=== PATIENT | female | born 1965 | race Hispanic/Latino ===

== ENCOUNTER 2017-07-01 21:01 | Emergency (ER) | payer BC ==
[2017-07-01 22:03] LABS: #Basophils 0.1 thou/uL (0.0-0.2); #Eosinphils 0.2 thou/uL (0.0-0.7); #Lymphocytes 3.1 thou/uL (1.20-3.40); #Monocytes 0.3 thou/uL (0.11-0.59); #Neutrophils 4.8 thou/uL (1.40-6.50); %Basophils 1.4 % (0.0-1.0); %Eosinophils 2.9 % (0.0-10.0); %Lymphocytes 36.5 % (21.0-51.0); %Monocytes 3.5 % (0.0-10.0); %Neutrophils 55.8 % (42.0-75.0); Hemoglobin 13.8 g/dL (12.0-16.0); Mean Corpuscular HGB CONC 35.2 g/dL (32.0-36.0); Mean Corpuscular Hemoglobin 33.2 pg (27.0-31.0); Mean Corpuscular Volume 94.2 fl (81.0-99.0); Mean Platelet Volume 7.5 fL (7.4-10.4); Platelet Count 329 thou/uL (130-400); RBC Distribution Width 12.5 % (11.5-14.5); Red Blood Cell (RBC) Count 4.16 mill/uL (4.20-5.40); White Blood Cell (WBC) Count 8.5 thou/uL (4.8-10.8)
[2017-07-01 22:41] LABS: Bilirubin Negative (Negative); Blood, Urine Negative (Negative); Clarity CLEAR (Clear); Glucose, Urine (Dipstick) >=1000 mg/dL (Negative); Leukocyte Negative (Negative); Nitrite Negative (Negative); Protein, Urine (Dipstick) 30 mg/dL (Neg-Trace); Specific Gravity, Urine 1.025 (1.002-1.036); pH, Urine 6.5 (5.0-9.0)
[2017-07-01 22:46] LABS: ALT (SGPT) 19 U/L (8-55); AST (SGOT) 19 U/L (5-34); Albumin 4.3 g/dL (3.5-5.0); Alkaline Phosphatase 132 U/L (40-150); Anion Gap 14 mmol/L (10-20); BUN (Urea Nitrogen) 10 mg/dL (7.0-18.7); Bilirubin, Total 0.3 mg/dL (0.2-1.2); Calc. Creatinine Clearance 0 mL/min (70-130); Calcium 9.7 mg/dL (7.8-10.44); Carbon Dioxide 27 mmol/L (22-29); Chloride 95 mmol/L (98-107); Estimated GFR-MDRD 49; Globulin 3.9 g/dL (2.4-3.5); Glucose 433 mg/dL (70-105); Lipase 49 U/L (8-78); Potassium 4.4 mmol/L (3.5-5.1); Protein, Total 8.2 g/dL (6.0-8.3); Sodium 132 mmol/L (136-145)
[2017-07-01 22:46] LABS: Bacteria/HPF 3+ HPF (None Seen); Hyaline Casts/LPF 0-3 HYALINE CAST LPF (0-3 Hyaline); Pathc Cast-AUWi Flag 0.13 (0-2.49); RBC/HPF 0-3 HPF (0-3); WBC/HPF 0-3 HPF (0-3)
[2017-07-01] MEDS ORDERED: Lidocaine Viscous Sol 2% 15 ml UD Cup ONE (22:50)
[2017-07-01] MEDS ORDERED: Mag-Al 1200 mg/1200 mg/30 ML UDCUP ONE (22:50)
[2017-07-01 23:07] LABS: CKMB 3.7 ng/mL (0-6.6); Troponin I 0.012 ng/mL (< 0.028)
--- NOTE | 2017-07-01 23:56 | RAD ---
PORTABLE AP CHEST X-RAY: 07/01/2017 HISTORY: Abdominal pain for 2 days. COMPARISON: None available. FINDINGS: Cardiac silhouette is magnified by projection. Pulmonary vasculature is within normal limits. Lungs are clear. Degenerative changes are seen in the spine. IMPRESSION: No acute cardiopulmonary process. POS: [facility]
--- NOTE | 2017-07-02 08:15 | ULT ---
PRELIMINARY REPORT/[facility]/EMERGENCY AFTER HOURS PROCEDURE: EXAM: US Abdomen Limited, Right Upper Quadrant CLINICAL HISTORY: 51 years old, female; Pain; Other: Upper abd pain TECHNIQUE: Real-time ultrasound of the right upper quadrant with image documentation. COMPARISON: No relevant prior studies available. FINDINGS: Liver: Liver demonstrates fatty infiltration without visible focal mass. Gallbladder: Partially contracted. No acute findings. No gallstones. Common bile duct: Unremarkable as visualized. 4 mm. No stones. No dilation. Pancreas: Unremarkable as visualized. Right kidney: No acute findings. 10.6 cm. No stones. No solid mass. No hydronephrosis. IMPRESSION: Fatty liver. No gallstones or other findings of cholecystitis. No biliary ductal dilation or visible stone. Thank you for allowing us to participate in the care of your patient. Dictated and Authenticated by: Luba Carlson MD 07/02/2017 1:17 AM Central Time ([place] & [place]) FINAL REPORT EMERGENCY AFTER HOURS STUDY ULTRASOUND ABDOMEN LIMITED: (RIGHT UPPER QUADRANT) HISTORY: A 51-year-old female with upper abdominal pain. FINDINGS: Gallbladder: Contracted. Common duct: 4 mm. Liver: Fatty liver. Pancreas: Nonspecific sonographic appearance. Right kidney: Normal. This report agrees with preliminary report by [facility]. IMPRESSION: 1. Hepatic steatosis. 2. Contracted gallbladder. Therefore, evaluation of the gallbladder is limited. FAISAL David POS: [facility]
--- NOTE | 2017-07-02 08:41 | CT ---
PRELIMINARY REPORT/[facility]/EMERGENCY AFTER HOURS PROCEDURE: EXAM: CT Abdomen and Pelvis With Intravenous Contrast CLINICAL HISTORY: 51 years old, female; Pain; Abdominal pain; Generalized TECHNIQUE: Axial computed tomography images of the abdomen and pelvis with intravenous contrast. Coronal reformatted images were created and reviewed. CONTRAST: 100 mL of ISOVUE administered intravenously. COMPARISON: US Gallbladder RUQ 2017-07-02 00:30 FINDINGS: Lower thorax: No acute findings. ABDOMEN: Liver: Liver is enlarged at 21.5 cm and demonstrates diffuse fatty infiltration. No solid mass is alphonso ntified. Gallbladder and bile ducts: No acute findings. No calcified stones. No ductal dilation. Pancreas: No acute findings. No mass. No ductal dilation. Spleen: No acute findings. No splenomegaly. Adrenals: No acute findings. No mass. Kidneys and ureters: No acute findings. No solid mass. No hydronephrosis. Stomach and bowel: There is moderate colonic fecal retention. No obstruction. No mucosal thickening. Appendix: The appendix is not visualized. PELVIS: Bladder: No acute findings. No mass. Reproductive: Unremarkable as visualized. ABDOMEN and PELVIS: Intraperitoneal space: No acute findings. No free air. No significant fluid collection. Bones/joints: Chronic degenerative spinal changes without acute fracture or dislocation. Soft tissues: Bilateral vental body wall subcutaneous skin thickening, lower abdomen level, may refle ct areas of fibrosis. There is small, fat containing umbilical hernia. Vasculature: No acute findings. No abdominal aortic aneurysm. Lymph nodes: No acute findings. No enlarged lymph nodes. IMPRESSION: Enlarged, fatty liver. No free air or bowel obstruction. Fecal retention. Thank you for allowing us to participate in the care of your patient. Dictated and Authenticated by: Luba Carlson MD 07/02/2017 2:09 AM Central Time ([place] & [place]) FINAL REPORT EMERGENCY AFTER HOURS STUDY CT ABDOMEN WITH CONTRAST CT PELVIS WITH CONTRAST: DATE: 07/02/17. TIME: 1:44 a.m. HISTORY: A 51-year-old female with generalized and left upper quadrant abdominal pain. COMPARISON: None. TECHNIQUE: IV injection of iodinated contrast media: administered. Oral contrast media: not administered. FINDINGS: This report agrees with preliminary report by [facility]. IMPRESSION: 1. Hepatic steatosis and hepatomegaly. 2. No evidence of small bowel obstruction. 3. Possible constipation. 4. Appendix not identified. 5. Otherwise, no acute findings. FAISAL David POS: [facility]
[2017-07-02] MEDS ORDERED: ISOVUE-370 76%-LOCM 1 ML ONE (14:34)
--- NOTE | 2017-07-02 15:38 | EKG ---
Test Reason : Blood Pressure : / mmHG Vent. Rate : 086 BPM Atrial Rate : 086 BPM P-R Int : 170 ms QRS Dur : 132 ms QT Int : 414 ms P-R-T Axes : 055 -29 041 degrees QTc Int : 495 ms Normal sinus rhythm Left ventricular hypertrophy with QRS widening Abnormal ECG Confirmed by JOVON STAHL, THIAGO Lu ([id number]), telegraph editor ABHIJIT NICHOLE ([id number]) on 07/02/2017 3:38:25 PM Referred By: Confirmed By:THIAGO SIGALA MD
== END 2017-07-02 02:30 | disposition home or self-care (01) ==
LOC: ERS 21:01
DX: R10.12 Left upper quadrant pain (principal); R10.11 Right upper quadrant pain; R10.13 Epigastric pain; E78.00 Pure hypercholesterolemia, unspecified; E11.9 Type 2 diabetes mellitus without complications; I10 Essential (primary) hypertension; Z79.4 Long term (current) use of insulin; Z79.899 Other long term (current) drug therapy
CPT/HCPCS: 36415; 71045; 74177; 76705; 80053; 81003; 81015; 82553; 83690; 84484; 85025; 93005; 96360

== ENCOUNTER 2018-06-03 21:26 | Emergency (ER) | payer BC ==
[~2018-06-03 21:26] MED LIST: ISOVUE-370 76%-LOCM 1 ML ONE; Iopamidol 370 76% 50 ML VIAL FS ONE
[2018-06-03 22:02] LABS: Hemoglobin 14.1 g/dL (12.0-16.0); Mean Corpuscular HGB CONC 34.2 g/dL (32.0-36.0); Mean Corpuscular Hemoglobin 32.3 pg (27.0-31.0); Mean Corpuscular Volume 94.4 fL (78.0-98.0); RBC Distribution Width 12.3 % (11.5-14.5); Red Blood Cell (RBC) Count 4.37 mill/uL (4.20-5.40); White Blood Cell (WBC) Count 9.1 thou/uL (4.8-10.8)
[2018-06-03 22:22] LABS: ALT (SGPT) 15 U/L (8-55); AST (SGOT) 27 U/L (5-34); Albumin 4.5 g/dL (3.5-5.0); Alkaline Phosphatase 108 U/L (40-150); Anion Gap 13 mmol/L (10-20); BUN (Urea Nitrogen) 10 mg/dL (9.8-20.1); Bilirubin, Total 0.3 mg/dL (0.2-1.2); Calc. Creatinine Clearance 0 mL/min (70-130); Calcium 10.1 mg/dL (7.8-10.44); Carbon Dioxide 26 mmol/L (22-29); Chloride 99 mmol/L (98-107); Estimated GFR-MDRD 44; Globulin 3.9 g/dL (2.4-3.5); Glucose 139 mg/dL (70-105); Lipase 71 U/L (8-78); Potassium 4.2 mmol/L (3.5-5.1); Protein, Total 8.4 g/dL (6.0-8.3); Sodium 134 mmol/L (136-145)
[2018-06-03 22:25] LABS: Band 1 % (5-11); Eosinophils 1 % (0-10); Lymphocytes 32 % (21-51); MDiff Complete? YES; Mean Platelet Volume 9.4 fL (7.4-10.4); Monocytes 5 % (0-10); Neutrophil 59 % (42-75); Platelet Clumps SLIGHT; Platelet Count 275 thou/uL (130-400); Platelet Morphology Comment Appears Adequate; Reactive Lymphocytes 2 % (0-10)
[2018-06-03] MEDS ORDERED: Morphine 4 MG/ML VIAL ONE (22:55)
[2018-06-03] MEDS ORDERED: Ondansetron PF 4 MG/2 ML Vial ONE (22:55)
[2018-06-03 23:17] LABS: Bilirubin Negative (Negative); Blood, Urine Negative (Negative); Clarity CLEAR (Clear); Glucose, Urine (Dipstick) Negative (Negative); Leukocyte Negative (Negative); Nitrite Negative (Negative); Protein, Urine (Dipstick) Negative (Neg-Trace); Specific Gravity, Urine 1.012 (1.002-1.036); Urobilinogen 0.2 mg/dL (0.2-1.0); pH, Urine 6.5 (5.0-9.0)
--- NOTE | 2018-06-04 08:09 | CT ---
PRELIMINARY REPORT/[facility]/EMERGENCY AFTER HOURS PROCEDURE: EXAM: CT Abdomen and Pelvis With Contrast EXAM DATE/TIME: 06/04/2018 12:38 AM CLINICAL HISTORY: 52 years old, female; Pain; Abdominal pain; Acute; Patient HX: F52 presents to ed C/O left left upper quadrant abdominal pain x1 week. PT went to pcp and was told it was just gas but has gotten worse. P T reports nausea but no vomiting. PT reports constipation and decreased appetite. PT has had tubes tied but no other abdominal surgeries. PT denies any urinary complaints. Last bm was about 2 days ago . PT has been able to pass gas. PT reports chills but denies fever. PT reports SOB. TECHNIQUE: Axial computed tomography images of the abdomen and pelvis with intravenous contrast. Coronal reforma tted images were created and reviewed. COMPARISON: No relevant prior studies available. FINDINGS: Lower thorax: No acute findings. ABDOMEN: Liver: There are no focal liver lesions identified. Gallbladder and bile ducts: The gallbladder is normal. There is no evidence of biliary ductal dilatio n. Pancreas: The pancreas appears normal. No ductal dilatation. Spleen: The spleen is normal. Adrenals: The adrenal glands are normal. Kidneys and ureters: The kidneys appear normal. No hydronephrosis. Stomach and bowel: The stomach is normal. The duodenum is unremarkable. Appendix: No appendix is specifically identified. No associated signs to suggest acute appendicitis. PELVIS: Bladder: The bladder is normal. Reproductive: The uterus is normal. ABDOMEN and PELVIS: Intraperitoneal space: Normal. No free air. No significant fluid collection. Bones/joints: No acute fracture. No dislocation. Soft tissues: There are areas of subcutaneous fluid/stranding within the abdominal wall bilaterally possibly from postsurgical scarring. Vasculature: Normal. No abdominal aortic aneurysm. Lymph nodes: There is an indeterminate enlarged lymph node at the LEFT nandini of the diaphragm measurin g 15 mm. IMPRESSION: 1. No acute abdominal pelvic pathology. 2. There is an indeterminate enlarged lymph node at the LEFT nandini of the diaphragm measuring 15 mm. Thank you for allowing us to participate in the care of your patient. Dictated and Authenticated by: Ronny Rendon MD 06/04/2018 1:45 AM Central Time ([place] & [place]) FINAL REPORT EMERGENCY AFTER HOURS CT ABDOMEN AND PELVIS: Date: 06/03/18 IMPRESSION: I agree with the preliminary report provided by [facility]. No acute abnormality is evident. The report details a 1.5 cm lymph node within the upper abdomen near the left diaphragmatic crux. No enlarged lymph node is evident within this region. There are legs of the diaphragmatic nandini extending to the diaphragm which can have a nodular appearance that produces the appearance of lymphadenopathy. No enlarged lymph nodes are evident. There is a prominent amount of retained stool. There is panniculitis overlying the lower abdomen. The re is mild fatty liver. There is scattered degenerative change. POS: [facility]
== END 2018-06-04 02:49 | disposition home or self-care (01) ==
LOC: ERS 21:26
DX: R10.12 Left upper quadrant pain (principal); R10.32 Left lower quadrant pain; R11.0 Nausea; E78.00 Pure hypercholesterolemia, unspecified; E11.9 Type 2 diabetes mellitus without complications; I10 Essential (primary) hypertension; E03.9 Hypothyroidism, unspecified; Z79.899 Other long term (current) drug therapy; Z79.4 Long term (current) use of insulin
CPT/HCPCS: 36415; 74177; 80053; 81003; 83690; 85025; 96361; 96374; 96375; J2270; J2405; Q9966; Q9967

== ENCOUNTER 2018-09-07 14:48 | Outpatient (CLI) | payer BC ==
--- NOTE | 2018-09-07 15:23 | MMO ---
Bilateral MAMMO Bilat Screen [facility]. CLINICAL HISTORY: Patient is 52 years old and is seen for screening. The patient has no family history of breast cancer. The patient has no personal history of cancer. VIEWS: The views performed were: bilateral craniocaudal; bilateral craniocaudal with tomosynthesis; bilateral mediolateral oblique with tomosynthesis; and right mediolateral oblique. FILMS COMPARED: The present examination has been compared to prior imaging studies performed at [facility] on 09/15/2009 and 09/20/2016, and at [facility] on 04/13/2013. MAMMOGRAM FINDINGS: There are scattered fibroglandular densities. There are vascular calcifications seen in both breasts. There are no suspicious masses, suspicious calcifications, or new areas of architectural distortion. IMPRESSION: A ROUTINE FOLLOW-UP MAMMOGRAM IN 1 YEAR IS RECOMMENDED. THE RESULTS OF THIS EXAM WERE SENT TO THE PATIENT. ACR BI-RADS Category 2 - Benign finding MAMMOGRAPHY NOTE: 1. A negative mammogram report should not delay a biopsy if a dominant of clinically suspicious mass is present. 2. Approximately 10% to 15% of breast cancers are not detected by mammography. 3. Adenosis and dense breasts may obscure an underlying neoplasm.
== END 2018-09-07 14:49 | disposition home or self-care (01) ==
LOC: BICMAMMO 14:48
PROVIDERS: ATTEND Nurse Practitioner Family
DX: Z12.31 Encounter for screening mammogram for malignant neoplasm of breast (principal)
CPT/HCPCS: 77063; 77067

== ENCOUNTER 2018-12-30 18:11 | Emergency (ER) | payer BC ==
--- NOTE | 2018-12-30 18:38 | RAD ---
RIGHT FOOT THREE VIEWS: 12/30/18 HISTORY: Fall. Right foot pain. FINDINGS/IMPRESSION: A hallux valgus deformity is present. A plantar calcaneal spur is present. There is suggestion of sub luxation versus dislocation at the second MTP joint. POS: [facility]
--- NOTE | 2018-12-30 19:05 | RAD ---
RIGHT LEG TWO VIEWS: 12/30/18 HISTORY: Right leg pain. FINDINGS/IMPRESSION: There is a mildly displaced comminuted fracture involving the distal shaft of the right fibula. The r ight tibia appears intact. POS: [facility]
== END 2018-12-30 19:30 | disposition home or self-care (01) ==
LOC: ERS 18:11
DX: S82.451A Displaced comminuted fracture of shaft of right fibula, initial encounter for closed fracture (principal); E78.00 Pure hypercholesterolemia, unspecified; E11.9 Type 2 diabetes mellitus without complications; Z79.899 Other long term (current) drug therapy; Z79.84 Long term (current) use of oral hypoglycemic drugs; W01.0XXA Fall on same level from slipping, tripping and stumbling without subsequent striking against object, initial encounter
CPT/HCPCS: 27786

== ENCOUNTER 2019-01-11 10:16 | Day surgery (SDC) | payer BC ==
[2019-01-10 14:56] VITALS: BMI 42.0
[2019-01-11] MEDS ORDERED: Dexamethasone 4 mg/ml Vial ONE (11:55)
[2019-01-11] MEDS ORDERED: Midazolam HCl 2 mg/2 ml Vial ONE ×2 (12:06→12:53)
[2019-01-11] MEDS ORDERED: Fentanyl 100 MCG/2 ML VIAL ONE ×3 (12:06→14:53)
[2019-01-11 12:09] LABS: Anion Gap 14 mmol/L (10-20); BUN (Urea Nitrogen) 11 mg/dL (9.8-20.1); Calc. Creatinine Clearance 96 mL/min (70-130); Calcium 9.8 mg/dL (7.8-10.44); Carbon Dioxide 25 mmol/L (22-29); Chloride 96 mmol/L (98-107); Estimated GFR-MDRD 55; Glucose 202 mg/dL (70-105); Potassium 4.2 mmol/L (3.5-5.1); Sodium 131 mmol/L (136-145)
[2019-01-11] MEDS ORDERED: HYDROcodone/Acetaminophen 10/325 mg Tablet PO PRN ×2 (12:28)
[2019-01-11] MEDS ORDERED: Ondansetron PF 4 MG/2 ML Vial IVP PRN (12:28)
[2019-01-11] MEDS ORDERED: Promethazine HCl 25 MG/ML VIAL IM PRN (12:28)
[2019-01-11] MEDS ORDERED: traMADol HCl 50 MG TAB PO PRN ×2 (12:28)
[2019-01-11] MEDS ORDERED: Zolpidem Tartrate 5 MG TAB PO PRN (12:28)
[2019-01-11] MEDS ORDERED: Ketorolac Tromethamine 30 MG/ML VIAL IVP PRN (12:28)
[2019-01-11] MEDS ORDERED: Ropivacaine 0.2% 550 ML 550 ML NERVE BLCK SCH (12:28)
[2019-01-11] MEDS ORDERED: Bupivacaine PF 0.5% 30 ML VIAL ONE (12:35)
--- NOTE | 2019-01-11 15:44 | RAD ---
INTRAOPERATIVE FLUOROSCOPY: HISTORY: ORIF right ankle. COMPARISON: None. FINDINGS: Three intraoperative fluoroscopic images demonstrate a metallic plate with multiple screws traversing the distal fibula. There is a single screw traversing the distal syndesmosis. IMPRESSION: Intraoperative fluoroscopy. POS: [facility]
--- NOTE | 2019-01-11 17:13 | EKG ---
Test Reason : PREOP Blood Pressure : / mmHG Vent. Rate : 084 BPM Atrial Rate : 084 BPM P-R Int : 178 ms QRS Dur : 142 ms QT Int : 432 ms P-R-T Axes : 016 -32 065 degrees QTc Int : 510 ms Normal sinus rhythm Left axis deviation Left ventricular hypertrophy with QRS widening Nonspecific T wave abnormality Abnormal ECG When compared with ECG of 01-JUL-2017 22:50, Nonspecific T wave abnormality now evident in Anterior leads Confirmed by DR. Liborio MUNOZ (3) on 01/11/2019 5:13:43 PM Referred By: SABINE Confirmed By:DR. Liborio MUNOZ
--- NOTE | 2019-01-12 11:17 | OP ---
DATE OF PROCEDURE: 01/11/2019 POSTOPERATIVE DIAGNOSIS: Right lateral malleolus fracture with syndesmotic disruption. POSTOPERATIVE DIAGNOSIS: Right lateral malleolus fracture with syndesmotic disruption. PROCEDURE PERFORMED: Open reduction and internal fixation, right lateral malleolus fracture with syndesmotic screw. ANESTHESIA: General. RANGE AIDE: Александр. TOURNIQUET TIME: 53 minutes at 300 mmHg. ESTIMATED BLOOD LOSS: Minimal. IMPLANTS: Synthes nonlocking 8-hole one-third tubular plate with a 4.0 cortical syndesmotic screw. COMPLICATIONS: None. DRAINS: None. SPECIMEN: None. OUTCOME: Near-anatomic alignment. INDICATIONS FOR PROCEDURE: The patient is a 53-year-old lady status post ground level fall sustaining twisting injury to the right ankle with subsequent lateral malleolus fracture with widening of the mortise and lateral displacement of the talus consistent with disruption of the syndesmosis. After discussion with the patient including risks and benefits, we decided to proceed with open reduction and internal fixation of the ankle as well as stabilization of the syndesmosis. Risks and benefits have been discussed. Risks included, but are not limited to bleeding, infection, nerve injury, DVT, PE, ankle stiffness, hardware failure, loss of limb or life. The patient appears to understand and does wish to proceed. Written consent has been obtained. DESCRIPTION OF PROCEDURE: The patient was brought to the operating room and a time-out performed, followed by induction of general anesthesia. Next, a sterile prep and drape was performed on the right lower extremity. An Esmarch bandage was then used to exsanguinate the limb and tourniquet inflated to 300 mmHg. A lateral skin incision was made over the lateral malleolus after the skin was sharply incised, dissection was carried down bluntly exposing the fracture. The fracture was reduced and held in place with a bone tenaculum, and then, 2 interfragmentary screws were passed through this anterior butterfly fragment into the main distal and proximal segment. This was then followed by application of an 8-hole one-third tubular plate as a neutralization device laterally. This was held in place with 3 cortical screws proximally and a combination of cortical and cancellous screws distally with one of the holes left open to receive a 4.0 mm cortical syndesmotic screw. The syndesmosis was reduced manually, and then, a drill passed through both cortices of the fibula as well as both cortices of the tibia. Measurement was then performed, and then, the screw was passed through the fibula into the tibia without excessive compression at the mortise, but with closure of this joint. AP, mortise, and lateral x-ray was then obtained that showed anatomic alignment of the fracture with reduction of the mortise. The wound was then irrigated with bulb syringe and then closed in layers with 0 Vicryl deep, followed by 2-0 Vicryl, and walter for the skin. A Xeroform gauze, Webril, and fiberglass splint were then applied to the ankle. Tourniquet was let down. The patient was transferred to recovery room in stable condition. There were no complications. The patient tolerated the procedure well. Job ID: [id number]
== END 2019-01-11 17:00 | disposition home or self-care (01) ==
LOC: SDC 10:16
PROVIDERS: ATTEND Orthopaedic Surgery
PROC: 0QSJ04Z Reposition Right Fibula with Internal Fixation Device, Open Approach (ICD-10-PCS; principal; 2019-01-11)
DX: S82.61XA Displaced fracture of lateral malleolus of right fibula, initial encounter for closed fracture (principal); I10 Essential (primary) hypertension; E11.9 Type 2 diabetes mellitus without complications; Z79.82 Long term (current) use of aspirin
CPT/HCPCS: 36415; 76000; 80048; 93005; 93010; A4306; C1713; J0690; J1100; J2250; J2795; J3010; S0020

== ENCOUNTER 2019-06-29 06:03 | Day surgery (SDC) | payer BC ==
[2019-06-28 10:00] VITALS: BMI 38.0
[2019-06-29] MEDS ORDERED: Fentanyl 100 MCG/2 ML VIAL ONE (06:28)
[2019-06-29] MEDS ORDERED: Lidocaine 1% (PF) 30 ML VIAL ONE (06:50)
[2019-06-29 06:51] LABS: #Eosinphils 0.1 thou/uL (0.0-0.7); #Lymphocytes 2.7 thou/uL (1.20-3.40); #Monocytes 0.4 thou/uL (0.11-0.59); #Neutrophils 4.7 thou/uL (1.40-6.50); %Basophils 0.5 % (0.0-1.0); %Eosinophils 1.7 % (0.0-10.0); %Lymphocytes 34.1 % (21.0-51.0); %Monocytes 4.4 % (0.0-10.0); %Neutrophils 59.3 % (42.0-75.0); Hemoglobin 13.8 g/dL (12.0-16.0); Mean Corpuscular HGB CONC 36.5 g/dL (32.0-36.0); Mean Corpuscular Hemoglobin 34.3 pg (27.0-31.0); Mean Corpuscular Volume 93.9 fL (78.0-98.0); Mean Platelet Volume 8.3 fL (7.4-10.4); Platelet Count 296 thou/uL (130-400); RBC Distribution Width 12.5 % (11.5-14.5); Red Blood Cell (RBC) Count 4.03 mill/uL (4.20-5.40); White Blood Cell (WBC) Count 7.9 thou/uL (4.8-10.8)
[2019-06-29 07:02] LABS: Anion Gap 17 mmol/L (10-20); BUN (Urea Nitrogen) 18 mg/dL (9.8-20.1); Calc. Creatinine Clearance 77 mL/min (70-130); Calcium 10.1 mg/dL (7.8-10.44); Carbon Dioxide 24 mmol/L (22-29); Chloride 93 mmol/L (98-107); Estimated GFR-MDRD 43; Glucose 500 mg/dL (70-105); Potassium 4.1 mmol/L (3.5-5.1); Sodium 130 mmol/L (136-145)
[2019-06-29] MEDS ORDERED: Famotidine/PF 20 mg/2ml Vial ONE (07:10)
[2019-06-29] MEDS ORDERED: Insulin Regular 300 UNITS/3 ML VIAL ONE (08:09)
[2019-06-29] MEDS ORDERED: Insulin Glargine 50 UNITS in Pre-Filled Syringe 1 EACH SC SCH (08:30)
[2019-06-29] MEDS ORDERED: HumaLOG 300 UNITS/3 ML VIAL SC SCH (08:30)
[2019-06-29] MEDS ORDERED: Lisinopril 10 MG TAB PO SCH (08:30)
--- NOTE | 2019-06-29 09:13 | CON ---
DATE OF CONSULTATION: 06/29/2019 CONSULTING PHYSICIAN: Mario Conti MD, Orthopedic Surgery. PURPOSE OF CONSULTATION: Management of hyperglycemia and uncontrolled diabetes mellitus, type 2. HISTORY OF PRESENT ILLNESS: The patient is a 53-year-old female, who presented to the [facility] today to have hardware removed from her ankle from the previous surgery and her labs showed that her glucose was up to 500, so the surgery is postponed until she is under better control in terms of hyperglycemia and her diabetes. She does not have much complaints to offer. She feels fine. PAST MEDICAL HISTORY: Positive for, 1. Hypertension. 2. Diabetes mellitus, type 2. PAST SURGICAL HISTORY: Right fibula fracture in December 2018. FAMILY HISTORY: Father is alive. Mother was and she had diabetes mellitus. ALLERGIES: NONE. MEDICATIONS: 1. Metformin 500 mg twice a day. 2. Levothyroxine 75 mcg once a day. 3. Lovastatin 40 mg once a day. 4. Glipizide 10 mg once a day. 5. Insulin Levemir 50 units once a day. 6. Lisinopril 10 mg once a day. 7. Gabapentin 300 mg at bedtime. REVIEW OF SYSTEMS: All 10 systems were reviewed and only symptoms mentioned in HPI are positive, the rest are negative. PHYSICAL EXAMINATION: GENERAL: She is not in any distress. She is quite obese lady. VITAL SIGNS: Her blood pressure is 152/112, pulse is 84, respirations 20, temperature is 96.2, and O2 saturation is 99% on room air. HEENT: Her head is atraumatic and normocephalic. Eyes are PERRLA. Sclerae are nonicteric. Oral mucosa is moist. NECK: Supple. LUNGS: Clear. HEART: S1 and S2 normal. No S3. No S4. No any murmur. ABDOMEN: Obese, soft, nontender, and nondistended. Mildly tender in the epigastric area on deeper palpation. No guarding. No masses. EXTREMITIES: No clubbing, cyanosis, or edema. NEUROLOGICAL: She is alert and oriented x4. There is no any motor or sensory deficits. LABORATORY DATA: Labs showed white count of 7.9, hemoglobin 13.8, hematocrit 37.9, and platelet count 296,000. Sodium of 130, potassium 4.1, chloride 93, CO2 of 24, BUN 18, creatinine 1.31, glucose 500, and calcium 10.1. IMPRESSION: 1. Uncontrolled diabetes. No diabetic ketoacidosis. 2. Renal insufficiency, most likely prerenal secondary to hyperglycemia and uncontrolled diabetes. 3. Hypertension. 4. Hyponatremia and hypochloremia, most likely secondary to diuresis, secondary to hyperglycemia. 5. Scheduled surgery for hardware removal from her right ankle from previous surgery. PLAN: The patient will receive IV fluids, Ringer's lactate at 125 mL/h. She will have 50 units of insulin Lantus subcutaneously now and 10 units of Humalog short-acting subcutaneously x1. We will put her back on her lisinopril 10 mg as we speak. Apparently, she was not taking her medications at least for the last couple of days and she does not have any glucometer machine at home. We will continue her other medications and she will be checked in 1 hour for response if her sugar drops to 200s. When the blood pressure is better, she will be sent home to follow up with primary doctor in the next few days, then reschedule her Orthopedic Surgery. Job ID: [id number]
[2019-06-29 12:38] LABS: Hemoglobin A1c 12.5 % (4.0-6.0)
--- NOTE | 2019-06-29 16:45 | EKG ---
Test Reason : PREOP Blood Pressure : / mmHG Vent. Rate : 069 BPM Atrial Rate : 069 BPM P-R Int : 170 ms QRS Dur : 148 ms QT Int : 440 ms P-R-T Axes : 044 -23 105 degrees QTc Int : 471 ms Normal sinus rhythm Non-specific intra-ventricular conduction block Nonspecific ST-T changes Poor anterior R wave progression Abnormal ECG When compared with ECG of 11-JAN-2019 11:24, Nonspecific T wave abnormality no longer evident in Inferior leads Nonspecific T wave abnormality, worse in Lateral leads Confirmed by DR. Liborio MUNOZ (3) on 06/29/2019 4:44:35 PM Referred By: SABINE Confirmed By:DR. Liborio MUNOZ
== END 2019-06-29 14:05 | disposition home or self-care (01) ==
LOC: SDC 06:03
PROVIDERS: ATTEND Orthopaedic Surgery
DX: S82.61XD Displaced fracture of lateral malleolus of right fibula, subsequent encounter for closed fracture with routine healing (principal); S93.431D Sprain of tibiofibular ligament of right ankle, subsequent encounter; E11.65 Type 2 diabetes mellitus with hyperglycemia; I10 Essential (primary) hypertension; E87.1 Hypo-osmolality and hyponatremia; E87.8 Other disorders of electrolyte and fluid balance, not elsewhere classified; N28.9 Disorder of kidney and ureter, unspecified; E66.9 Obesity, unspecified; Z68.38 Body mass index [BMI] 38.0-38.9, adult; Z53.09 Procedure and treatment not carried out because of other contraindication; Z79.4 Long term (current) use of insulin; Z79.899 Other long term (current) drug therapy; X58.XXXD Exposure to other specified factors, subsequent encounter
CPT/HCPCS: 36415; 36416; 80048; 83036; 85025; 93005; 93010; J0690; J1815; J2001; J3010; S0028

== ENCOUNTER 2019-07-13 06:02 | Day surgery (SDC) | payer BC ==
[2019-07-12 15:40] VITALS: BMI 36.8
[2019-07-13] MEDS ORDERED: Fentanyl 100 MCG/2 ML VIAL ONE (07:07)
[2019-07-13] MEDS ORDERED: Bupivacaine PF 0.5% 30 ML VIAL ONE (08:04)
--- NOTE | 2019-07-13 09:12 | OP ---
DATE OF PROCEDURE: 07/13/2019 PROCEDURE PERFORMED: Right ankle hardware removal. PREOPERATIVE DIAGNOSIS: History of ankle fracture with syndesmosis fixation. POSTOPERATIVE DIAGNOSIS: History of ankle fracture with syndesmosis fixation. COMPLICATIONS: None. ESTIMATED BLOOD LOSS: Minimal. BATTERY SERVICE TECHNICIAN: None. IMPLANTS: None. INDICATIONS: Subha is a 53-year-old female, who has fallen and fractured her ankle approximately 3 months ago. She has been indicated now for syndesmosis screw removal to restore full function and prevent hardware breakage. Risks have been reviewed in detail. She has elected to proceed with the operation. DESCRIPTION OF PROCEDURE: Ms. Mascorro was identified in the preoperative holding area. Her correct extremity was marked. She was carried to the operating room. She was positioned supine. General anesthesia was induced. A multidisciplinary time-out was performed. The right lower extremity was prepped and draped in sterile fashion. We began the procedure with intraoperative evaluation of the ankle with x-ray. We identified the appropriate screw. We then made a small incision over the screw head. We dissected down through the subcutaneous tissues to the plate and screw. The screw was backed out appropriately with a screwdriver. We took x-ray images including a stress view x-ray, which was negative. At this point, we irrigated and closed the wound as well as placed local anesthetic. The patient was taken to the recovery room in good condition. Job ID: [id number]
[2019-07-13] MEDS ORDERED: Ondansetron PF 4 MG/2 ML Vial ONE (09:52)
[2019-07-13] MEDS ORDERED: PROPOFOL 200 MG/20 ML VIAL ONE (09:52)
[2019-07-13] MEDS ORDERED: EPHEDRINE 25 MG/5 ML SYRINGE ONE (09:52)
[2019-07-13] MEDS ORDERED: Lidocaine 1% PF 5 ML VIAL ONE (09:52)
--- NOTE | 2019-07-13 09:57 | RAD ---
RIGHT ANKLE 2 VIEWS: HISTORY: Hardware removal. COMPARISON: None. FINDINGS: A single spot image was obtained. Metal plate and screw fixation of distal fibula. Syndesmotic scre w is no longer appreciated. IMPRESSION: 1. Syndesmotic screw no longer appreciated. 2. Healing of distal fibular fracture above the syndesmosis. POS: [facility]
== END 2019-07-13 09:50 | disposition home or self-care (01) ==
LOC: SDC 06:02
PROVIDERS: ATTEND Orthopaedic Surgery
PROC: 0SPF04Z Removal of Internal Fixation Device from Right Ankle Joint, Open Approach (ICD-10-PCS; principal; 2019-07-13)
DX: S93.431D Sprain of tibiofibular ligament of right ankle, subsequent encounter (principal); S82.61XD Displaced fracture of lateral malleolus of right fibula, subsequent encounter for closed fracture with routine healing; E11.9 Type 2 diabetes mellitus without complications; I10 Essential (primary) hypertension; Z79.84 Long term (current) use of oral hypoglycemic drugs; Z79.899 Other long term (current) drug therapy
CPT/HCPCS: 36416; 76000; J0690; J2001; J2405; J2704; J3010; S0020